=== PATIENT | male | born 1985 | race Caucasian/White ===

== ENCOUNTER 2021-05-05 10:19 | Emergency (ER) | payer SELFPAY ==
--- NOTE | ~2021-05-05 | US_ITS ---
EXAMINATION: US SCROTUM including Doppler evaluation. CLINICAL INFORMATION: Right testicular swelling status post intercourse.. COMPARISON: None TECHNIQUE: A sonogram of the scrotum was performed assessing cook-scale appearance and color Doppler flow. Spectral Doppler analysis of the arterial and venous flow were performed in the testes bilaterally. FINDINGS: RIGHT: Right testicle measures 5.5 x 3.0 x 4.4 cm, volume 38 mL. No focal testicular parenchymal lesions are visualized. Spectral Doppler analysis of the arterial and venous flow is normal in the right testis. Right epididymal head is normal in size. There is a right hydrocele present. No right varicocele is seen. Right epididymal Doppler flow is normal. 5 mm right scrotal carlos present. LEFT: Left testicle measures 4.9 x 2.8 x 3.8 cm, volume 28 mL. No focal testicular parenchymal lesions are visualized. Spectral Doppler analysis of the arterial and venous flow is normal in the left testis. Left epididymal head is there is a small 2 mm epididymal head cysts seen. There is a left hydrocele. No left varicocele is seen. Left epididymal Doppler flow is normal. US/US scrotum doppler IMPRESSION: No testicular abnormality identified. No evidence of testicular torsion. Moderate bilateral hydroceles. No evidence of acute epididymitis.
--- NOTE | ~2021-05-05 | US_ITS ---
EXAMINATION: US SCROTUM including Doppler evaluation. CLINICAL INFORMATION: Right testicular swelling status post intercourse.. COMPARISON: None TECHNIQUE: A sonogram of the scrotum was performed assessing cook-scale appearance and color Doppler flow. Spectral Doppler analysis of the arterial and venous flow were performed in the testes bilaterally. FINDINGS: RIGHT: Right testicle measures 5.5 x 3.0 x 4.4 cm, volume 38 mL. No focal testicular parenchymal lesions are visualized. Spectral Doppler analysis of the arterial and venous flow is normal in the right testis. Right epididymal head is normal in size. There is a right hydrocele present. No right varicocele is seen. Right epididymal Doppler flow is normal. 5 mm right scrotal carlos present. LEFT: Left testicle measures 4.9 x 2.8 x 3.8 cm, volume 28 mL. No focal testicular parenchymal lesions are visualized. Spectral Doppler analysis of the arterial and venous flow is normal in the left testis. Left epididymal head is there is a small 2 mm epididymal head cysts seen. There is a left hydrocele. No left varicocele is seen. Left epididymal Doppler flow is normal. US/US scrotum IMPRESSION: No testicular abnormality identified. No evidence of testicular torsion. Moderate bilateral hydroceles. No evidence of acute epididymitis.
[2021-05-05 10:22] VITALS: BP 122/71; PULSE 65; RESP 18; TEMP 36.1; O2SAT 100; BMI 28.8
[2021-05-05 11:18] LABS: Appearance Urine CLEAR; Color Urine YELLOW; Glucose Urine UA NEG (NEG); Leukocyte Esterase Urine NEG (NEG); Nitrite Urine NEG (NEG); PH 6.5 (5.0-8.0); UACC Culture Trigger NO; Urine Blood TRACE (NEG); Urine Ketones 15 MG/DL (NEG); Urine Protein NEG (NEG-TRACE)
[2021-05-05 11:30] LABS: Mucus Urine 2+ /LPF; WBC Urine 0-2 /HPF (0-4)
--- NOTE | 2021-05-05 11:37 | ED_ITS ---
HPI - Male Genitourinary General Chief complaint: Urogenital-Male Stated complaint: scrotum pain Time Seen by Provider: 05/05/21 10:32 Source: patient Mode of arrival: ambulatory Limitations: no limitations History of Present Illness Complaint: testicle swelling and genital injury Onset (ago): minute(s) (Prior to arrival) Duration: constant Location: penis and right testicle Severity: moderate Quality: other (Patient reports that does not her) Relieving factors: none Exacerbating factors: none Context: trauma (He reports that he was having rough intercourse without any instruments and when he went to penetrate with his penis he might of slammed too hard and injured himself and since then has been having swelling to the right testicle) Associated symptoms: Reports swelling Related Data Sexually active: Yes Allergies Allergy/AdvReac Type Severity Reaction Status Date / Time No Known Allergies Allergy Verified 05/05/21 10:39 Review of Systems Review of Systems: Constitutional : No Weight loss, No Fever, No Chills, No Night Sweats, No Fatigue, NoMalaise ENT/Mouth: No ear pain, No sore throat, No Difficulty swallowing Cardiovascular : No Chest Pain, No SOB, No Dyspnea on Exertion, No Orthopnea, NoEdema, No Palpitations Respiratory : No Cough, No Sputum, No Wheezing, No Dyspnea Gastrointestinal : No Nausea, No Vomiting, No Diarrhea, + abdominal Pain, No Hematochezia, No Melena Genitourinary : + right testicular swelling after intercourse that was rough, No testicular pain, No irregular bleeding, No Dysuria, No Urinary Frequency, No Hematuria,No Urinary Incontinence, No Urgency, No Flank Pain Musculoskeletal : No joint pain, No Myalgias, No Joint Swelling Skin : No Skin Lesions, No rash Neuro : No Weakness, No Numbness, No Paresthesias, No Loss of Consciousness, NoDizziness, No Headache Psych : No Social Issues, Heme/Lymph: No Bruising, No Bleeding,No Lymphadenopathy Endocrine : No Polyuria, No Polydipsia, No Temperature Intolerance PATIENT DENIES ANY THOUGHTS OF STDS Yes all other systems are reviewed and are negative [facility] Past Medical History Attestation statement: The following information was validated with the patient. Social History Social History Advance Directives: No Advance Directives Information Provided: No Physical Exam Vital Signs: Vital Signs: Last Vital Signs Temp 97 F 05/05/21 10:22 Pulse 65 05/05/21 10:22 Resp 18 05/05/21 10:22 BP 122/71 05/05/21 10:22 Pulse Ox 100 05/05/21 10:22 Body Mass Index 28.8 vital signs have been reviewed as normal and appeared to be correct. Blood pressure normal. Heart rate normal. Respiration rate normal. Temperature normal. Oxygen saturation normal. Appearance: Alert. Oriented X3. No acute distress. Head: Normal external exam. Normocephalic. Atraumatic. Eyes: PERRLA. EOMI. Conjunctiva and sclera normal. Eyelids normal. ENT: Pharynx normal. Uvula midline. Moist mucous membranes. Neck: Normal inspection. Neck supple. FROM. No adenopathy. No meningeal signs. CVS: Normal heart rate and rhythm. Heart sound normal. No murmurs noted. Pulses normal throughout. Respiratory: No respiratory distress. Painless inspiration. Breath sounds normal. No wheezes/rales/rhonchi noted. Chest nontender. No accessory muscle usage noted or decreased air movement noted. Abdomen: Soft and nontender. Bowel sounds normal in all 4 quadrants. No distention noted. No organomegaly noted. No visible injury noted. : Chaperoned by YAJAIRA Sutton. To the left testicle patient has moderate soft tissue swelling although no tenderness. The rest of the external exam is within normal limits. No additional masses/lumps/ecchymosis/erythema/lacerations/lesions/vesicles/induration or tenderness noted. No hernia noted. No inguinal lymphadenopathy noted. Normal penis free of discharge. No varicocele. No blue dot sign. Back: No CVA tenderness. Full range of motion noted. Skin: Skin warm and dry. Normal skin color. Normal skin turgor. No rashes/lesions/lacerations noted. Extremities: Extremities exhibit normal range of motion. Extremities nontender. Neuro: Oriented X 3. No motor deficit. No sensory deficit. Reflexes normal. Course Course Course Narrative: 10:40am - 35-year-old male presenting to the ED with complaints of right scrotal swelling after he was having intercourse with his partner he has no thoughts of STDs. He reports they were not using any instruments although when he went to penetrate her again he went kind a rough and instead he hurt himself and did not actually penetrate his female partner. He denies any fevers, chills, abdominal pain, abnormal penile discharge, hematuria or dysuria any rashes or any other symptoms complaints or concerns at this time. He actually reports that his testicles do not hurt they are just swollen. Will obtain and UA and a scrotal ultrasound and re-evaluate Reevaluation(s) Reevaluation #1: - UA revealed some hematoma otherwise no evidence of UTI and patient is urinaring normally. - ultrasound revealed bilateral hydroceles otherwise no other acute processes. Therefore patient most likely just soft tissue swelling and he does not have any pain on exam only has swelling therefore I do not believe this is a penile fracture therefore at this time will DC home with instructions to follow up with Urology and to return if any new or worsening symptoms. Patient understands agrees with this plan. Time: 13:15 [facility] - Male Genitourinary Medical Records Attestation: I reviewed the patient's medical records. Lab Data Attestation: I reviewed the patient's lab results. Labs: Lab Results 05/05/21 Range/Units 11:02 Urine Color YELLOW Urine Appearance CLEAR Urine pH 6.5 (5.0-8.0) Ur Specific [place] 1.020 (1.005-1.025) Urine Protein NEG (NEG-TRACE) MG/DL Urine Glucose (UA) NEG (NEG) MG/DL Urine Ketones 15 (NEG) MG/DL Urine Blood TRACE (NEG) Urine Nitrite NEG (NEG) Ur Leukocyte Esterase NEG (NEG) Urine RBC 5-9 H (0) /HPF Urine WBC 0-2 (0-4) /HPF Ur Squamous Epith Cells NONE /LPF Urine Bacteria NONE /LPF Urine Mucus 2+ /LPF Imaging Data Scrotal ultrasound: Attestation: I personally reviewed and interpreted this imaging study as follows: Radiologist's impression: FINDINGS: RIGHT: Right testicle measures 5.5 x 3.0 x 4.4 cm, volume 38 mL. No focal testicular parenchymal lesions are visualized. Spectral Doppler analysis of the arterial and venous flow is normal in the right testis. Right epididymal head is normal in size. There is a right hydrocele present. No right varicocele is seen. Right epididymal Doppler flow is normal. 5 mm right scrotal carlos present. LEFT: Left testicle measures 4.9 x 2.8 x 3.8 cm, volume 28 mL. No focal testicular parenchymal lesions are visualized. Spectral Doppler analysis of the arterial and venous flow is normal in the left testis. Left epididymal head is there is a small 2 mm epididymal head cysts seen. There is a left hydrocele. No left varicocele is seen. Left epididymal Doppler flow is normal. US/US scrotum IMPRESSION: No testicular abnormality identified. No evidence of testicular torsion. ? Moderate bilateral hydroceles. ? No evidence of acute epididymitis. Discharge Plan Discharge Clinical Impression: Bilateral hydrocele, Swelling of right testicle Patient Disposition: Home, Self-Care Instructions: Hydrocele (ED), Scrotal Pain (ED) Additional Instructions: Call 1 of the urologist below for follow-up return if any new or worsening symptoms and follow up with her primary care provider as Referrals: Abdelrahman Coy MD [Physician] - 2 days Duane Arriola III, MD [Physician] - 2 days Physician,None [Primary Care Provider] - 2 days (your pcp) Stand Alone Forms: Work/School Release Print Language: Libyan
== END 2021-05-05 13:27 | disposition home or self-care (01) ==
PROVIDERS: Physician Assistant Medical; Emergency Provider Emergency Medicine Emergency Medical Services
DX: N43.3 Hydrocele, unspecified (principal); N50.811 Right testicular pain; N50.89 Other specified disorders of the male genital organs
CPT/HCPCS: 76870; 81001; 93975; 99283; 99284

== ENCOUNTER 2021-05-06 08:14 | Emergency (ER) | payer OTHER, SELFPAY ==
[2021-05-06 08:20] VITALS: BP 121/81; PULSE 88; RESP 16; TEMP 36.8; O2SAT 100; BMI 29.0
--- NOTE | 2021-05-06 08:32 | ED.MALEGU ---
HPI - Male Genitourinary General Chief complaint: Urogenital-Male Stated complaint: swollen scrotum (pain) Time Seen by Provider: 05/06/21 08:32 Source: patient Mode of arrival: ambulatory Limitations: no limitations History of Present Illness HPI Narrative: Patient had bilateral US after injuring his penis and testicles during intercourse. He had an ultrasound yesterday that showed bilateral hydrocele. Today his penis is swollen with some ecchymosis. no fever. MD Complaint: testicle pain, testicle swelling and genital injury Onset (ago): day(s) (1) Duration: constant Location: penis, right testicle and left testicle Severity: mild Relieving factors: none Exacerbating factors: none Associated symptoms: Reports denies other symptoms Related Data Allergies Allergy/AdvReac Type Severity Reaction Status Date / Time No Known Allergies Allergy Verified 05/05/21 10:39 Review of Systems Constitutional: Constitutional: Reports no additional constitutional complaints Eyes: Eyes: Reports no additional eye complaints ENT: Denies dizziness Cardiovascular: Cardiovascular: Reports no additional cardiovascular complaints Respiratory: Respiratory: Reports as per HPI Gastrointestinal: Gastrointestinal: Reports no additional gastrointestinal complaints Musculoskeletal: Musculoskeletal: Reports no additional musculoskeletal complaints Integumentary/Breasts: Skin/Breast: Denies rash Neurologic: Reports system reviewed and no additional complaints, except as documented, Denies dizziness and Denies Sensory deficit (Neuro) Psychiatric: Psychiatric: Denies anxiety [facility] Social History Social History Advance Directives: No Physical Exam Vital Signs: Vital Signs: Last Vital Signs Temp 98.3 F 05/06/21 08:20 Pulse 88 05/06/21 08:20 Resp 16 05/06/21 08:20 BP 121/81 05/06/21 08:20 Pulse Ox 100 05/06/21 08:20 Body Mass Index 29.0 Const: General: healthy appearing Nutritional Appearance: average body habitus Orientation/consciousness: oriented to person and patient oriented x3 Limitations: no limitations HENMT: Head: Yes normal to inspection Ears: external ears normal General nose exam: Normal external nose present Mouth: Normal oral and palatal mucosa present and oropharynx normal Throat: Yes posterior oropharynx normal Eyes: General: appearance normal, both eyes and all related structures Neck: Other: supple Neck: Yes normal visual inspection Chest: Chest palpation & inspection: normal inspection of the chest Resp: Auscultation: clear to auscultation bilaterally Cardio: Jugular venous distension: no JVD Rate: regular rate Rhythm: regular rhythm Heart sounds: S1 normal heart sound present and S2 normal heart sound present GI: Inspection: Yes normal to inspection Palpation (GI): Soft to palpation, nontender and No hepatosplenomegaly present Auscultation: normal bowel sounds : Other: Penis and scrotum swollen with edema and ecchymosis. Shaft of penis non tender. Both testicles are nontender. General: Yes no CVA tenderness Back/Spine/Pelvis: Back: no CVA tenderness Skin: General skin exam: no rashes or lesions noted Neuro: General: oriented to person and patient oriented x3 Cranial nerves: Yes CN's II-XII intact bilaterally Motor exam (neuro): 5/5 motor strength present throughout Sensory Exam: No Sensory deficit (Neuro) Extrem: General: Yes normal to inspection Psych: Appearance: grossly normal Course Course Course Narrative: discussed with israel Collado and ice and tylenol Discharge Plan Discharge Clinical Impression: Penile trauma Qualifiers: Encounter type: subsequent encounter Qualified Code(s): S39.94XD - Unspecified injury of external genitals, subsequent encounter Patient Disposition: Home, Self-Care Additional Instructions: ice, elevation, compression Referrals: Abdelrahman Coy MD [Physician] - 2 days
== END 2021-05-06 08:52 | disposition home or self-care (01) ==
PROVIDERS: Emergency Provider Emergency Medicine
DX: S39.94XA Unspecified injury of external genitals, initial encounter (principal); W51.XXXA Accidental striking against or bumped into by another person, initial encounter; Y93.89 Activity, other specified; Y92.9 Unspecified place or not applicable; Y99.9 Unspecified external cause status
CPT/HCPCS: 99283